=== PATIENT | female | born 1940 | race Caucasian/White ===

== ENCOUNTER → 2020-05-19 | Outpatient (CLI) | payer MEDICARE ==
[~2020-05-19] MED LIST: ATOR20TA37 PO; CLON1TAB11 PO; GABA600T7 PO; LOSA1TAB25 PO; PREDNISONE; SERT25TA3 PO; VERA240C2 PO
== END | disposition home or self-care (01) ==
LOC: CVU 13:27
PROVIDERS: ATTEND Nurse Practitioner
DX: I83.10 Varicose veins of unspecified lower extremity with inflammation (principal); M79.604 Pain in right leg
CPT/HCPCS: 93971